=== PATIENT | female | born 1985 | race Caucasian/White ===

== ENCOUNTER 2017-08-05 09:16 | Emergency (ER) | payer MEDICAID, OTHER ==
[~2017-08-05] VITALS: Ht 154.9 cm; Wt 63.5 kg
[2017-08-05 09:16] VITALS: BP_SYST 97
--- NOTE | 2017-08-05 09:17 | NUR ---
BROUGHT BACK TO BED #5 AND TRIAGED. REPORT GIVEN TO JAKE
--- NOTE | 2017-08-05 09:30 | NUR ---
Pt presents to ER c/o RLQ abdominal pain 3/10 that began this morning at 0700. Pt reports that pain is 3/10 on pain scale but is worse upon palpation and ambulation. Pt also c/o nausea, denies vomiting or diarrhea, LMP 2-3 weeks ago as per pt. Pt denies chest pain, sob. Pt in no acute respiratory distress, speaking full sentences, AOX4.
[2017-08-05] MEDS ORDERED: NACL 0.9% 1,000 ML IV ONE (09:45)
[2017-08-05] MEDS ORDERED: KETOROLAC TROMETHAMINE 30 MG VIAL IVP ONE (09:45)
[2017-08-05] MEDS ORDERED: ONDANSETRON HCL 4 MG/2 ML VIAL IVP ONE (09:45)
--- NOTE | 2017-08-05 09:45 | NUR ---
ER at bedside examining patient.
[2017-08-05 10:13] LABS: BASOPHILS % (AUTO) 0.7 % (0.0-2.0); EOSINOPHILS # (AUTO) 0.1 K/uL (0.0-0.4); EOSINOPHILS % (AUTO) 1.5 % (0.0-4.0); HEMATOCRIT 41.6 % (36-48); HEMOGLOBIN 13.6 g/dL (12.0-16.0); LYMPHOCYTES # (AUTO) 1.4 K/uL (1.0-5.5); MEAN CORPUSCULAR HEMOGLOBIN 29 pg (27-31); MEAN CORPUSCULAR HGB CONC 33 % (32-36); MEAN CORPUSCULAR VOLUME 87 fL (79.0-98.0); MONOCYTES # (AUTO) 0.4 K/uL (0.0-1.0); MONOCYTES % (AUTO) 7.2 % (1.7-9.3); NEUTROPHILS # (AUTO) 3.8 K/uL (1.8-7.7); NEUTROPHILS % (AUTO) 65.6 % (40.0-70.0); PLATELET COUNT (AUTO) 196 K/uL (130-430); RED BLOOD CELL COUNT(AUTO) 4.76 MIL/uL (4.2-6.2); RED CELL DISTRIBUTION WIDTH 12.5 % (9.0-15.0); WHITE BLOOD COUNT (AUTO) 5.7 K/uL (4.8-10.8)
--- NOTE | 2017-08-05 10:15 | NUR ---
Patient transported to radiology via wheelchair, accompanied by rad staff.
--- NOTE | 2017-08-05 10:25 | NUR ---
Returned from radiology, back to [facility].
[2017-08-05 10:29] LABS: CALCIUM 9.2 mg/dL (8.4-11.0); CREATININE 0.71 mg/dL (0.55-1.30); POTASSIUM 4.1 mmol/L (3.5-5.1)
[2017-08-05 10:34] LABS: ALBUMIN 3.7 g/dL (3.4-4.8); TOTAL BILIRUBIN 0.5 mg/dL (0.0-1.0)
--- NOTE | 2017-08-05 10:37 | NUR ---
Pt reports that pain and nausea have decreased. Pain level 2/10 and not as painful upon palpation or ambulation.
--- NOTE | 2017-08-05 11:25 | NUR ---
Pt sent to ultrasound on wheelchair accompanied by rad staff.
--- NOTE | 2017-08-05 12:00 | NUR ---
Pt returned from ultrasound, back to [facility].
[2017-08-05 12:30] VITALS: BP_SYST 97
--- NOTE | 2017-08-05 12:30 | NUR ---
Dr. Aguayo at bedside speaking with pt discussing lab and diagnostic results.
--- NOTE | 2017-08-05 12:50 | NUR ---
Patient given written and verbal discharge instructions and verbalizes understanding. ER MD discussed with patient the results and treatment provided. Patient in stable condition. ID arm band removed. IV catheter removed intact and dressing applied, no active bleeding. Rx of Tramadol, Zofran, Motrin given. Patient educated on pain management and to follow up with PMD. Pain Scale 0/10. Opportunity for questions provided and answered. Medication side effect fact sheet provided.
== END 2017-08-05 09:17 | disposition home or self-care (01) ==
LOC: SED 09:16
DX: N83.201 Unspecified ovarian cyst, right side (principal); R03.0 Elevated blood-pressure reading, without diagnosis of hypertension
CPT/HCPCS: 36415; 74176; 76830; 76857; 80053; 81025; 85025; 87040; 96374; 96375; 99285; J1885; J2405; J7030